=== PATIENT | male | born 1990 | race Caucasian/White ===

== ENCOUNTER 2019-09-06 17:28 | Emergency (ER) | payer OTHER, SELFPAY ==
[2019-09-06 17:39] VITALS: BP 144/97; PULSE 69; RESP 18; TEMP 37.3; O2SAT 100
--- NOTE | 2019-09-06 18:13 | ED.GENADULT ---
HPI - General Adult General Chief complaint: Ear Stated complaint: Ear Pressure/Pain/Dizziness Time Seen by Provider: 09/06/19 17:48 Source: patient and RN notes reviewed Mode of arrival: ambulatory Limitations: no limitations History of Present Illness HPI narrative: 29-year-old male presents with complains of RT ear pain, rhinorrhea, congestion, and decrease hearing for the past 2 days. Debrox without relief. No drainage, itching, or trauma to ear. No facial swelling. Rhinorrhea and nasal congestion. No high fevers, sore throat, drooling, neck or throat swelling. No chest pain or shortness of breath. Denies tinnitus, syncopal episodes, and balance disturbance. Denies dizziness, nausea, vomiting, and abdominal pain. Tolerating liquids well. Some parts of this dictation were generated by voice recognition software and may contain typographical and/or grammatical inaccuracies. Related Data Allergies Allergy/AdvReac Type Severity Reaction Status Date / Time No Known Allergies Allergy Verified 09/06/19 17:46 Review of Systems Review of Systems: Narrative: CONSTITUTIONAL: Denies fever, chills, sweats. EYES: Denies visual changes, redness, discharge. ENT: Complains of rhinorrhea, congestion, decrease hearing, RT otalgia. Denies drainage, sore throat. CARDIOVASCULAR: Denies chest pain, palpitations, edema. RESPIRATORY: Denies dyspnea, wheezing, cough. GASTROINTESTINAL: Denies abdominal pain, nausea, vomiting, diarrhea. GENITOURINARY: Denies dysuria, hematuria, abnormal discharge. SKIN: Denies rash or itching. MUSCULOSKELETAL: Denies acute back pain, joint pain, or myalgia. NEUROLOGIC: Denies numbness or focal weakness. Recent complaints of resolved nausea and dizziness. PSYCHIATRIC: Denies anxiety or depression. All systems reviewed & are unremarkable except as noted in HPI and below. [facility] Past Medical History Medical History (Updated 09/15/19 @ 03:18 by NORI Irvin) Eczema Tinnitus Surgical History Surgical History (Updated 09/06/19 @ 18:16 by NORI Irvin) No significant past surgical history Family History Family History (Updated 09/06/19 @ 18:16 by NORI Irvin) Mother Hypertension Social History Social History (Updated 09/06/19 @ 18:17 by NORI Irvin) Smoking packs per day: 0.25 Smoking cigarettes per day: 5.0 Years smoked: 15 Smoking pack-years: 3.75 Smoking status: Current every day smoker Second hand tobacco smoke exposure: No Alcohol intake: current Substance use: never Living arrangements: with family Occupation/Education: occupation Gender identity (if verbalized by the patient): Male Comments At time of signature, agree with nurse past medical, surgical, social, and family history. There is no relevant family history pertinent to the presenting complaint. Exam Narrative: Exam Narrative: GENERAL: This is a well-nourished, well-developed patient, in no apparent distress. Talks in full sentences and ambulates with steady gait without dyspnea. HEAD: normocephalic, atraumatic. EYES: PERRL. Sclera clear/white. Vision is grossly intact. EARS: External ears normal, auditory canals clear and without drainage, RT TM with mild-moderate redness, bulging, and effusion. No perforation or drainage. LT TM pearly harrell with good cone of light, no erythema or suppuration. No gross hearing deficit. NOSE: External nose normal with no obvious nasal discharge, nares with moderate redness and enlarged turbinates, clear rhinorrhea. THROAT: Mucous membranes moist, posterior pharynx with PND, mild erythema, no exudate, and normal tonsils. No drainage, no concern for Peritonsillar abscess. No drooling, trismus, or neck swelling. NECK: Neck supple, non-tender without lymphadenopathy, masses or thyromegaly. CARDIOVASCULAR: Regular rate and rhythm without murmurs, gallops, or rubs. RESPIRATORY: Clear to auscultation. Breath sounds equal kim
== END 2019-09-06 18:35 | disposition home or self-care (01) ==
PROVIDERS: Emergency Provider Nurse Practitioner Family
DX: H65.93 Unspecified nonsuppurative otitis media, bilateral (principal); F17.210 Nicotine dependence, cigarettes, uncomplicated
CPT/HCPCS: 99203; G0463

== ENCOUNTER → 2021-02-26 15:17 | Outpatient (CLI) | payer OTHER, SELFPAY ==
--- NOTE | ~2021-02-26 | CT_ITS ---
EXAMINATION: CT sinus wo con DATE: 02/26/2021 15:43 INDICATION: Disorder/dysfunction of eustachian tube TECHNIQUE: Computed tomography (CT) of the paranasal sinuses was performed without contrast. Iterativ e reconstruction technique was employed. Exam dose: 270.28 mGy-cm total exam DLP. COMPARISON: None FINDINGS: There is leftward deviation of the mid to lower nasal septum and rightward bowing of the up per nasal septum. The paranasal sinuses and mastoid air cells are normally developed and aerated. The ostiomeatal units are patent. Intralamellar cell of both middle nasal turbinate. IMPRESSION: Nasal septal deviation Patent ostiomeatal units, paranasal sinuses and mastoid air cells Reviewed, dictated and finalized at [facility]. Reviewed, dictated and finalized at [facility].
== END ==
PROVIDERS: PCP Family Medicine; Visit Provider Nurse Practitioner Family
DX: H69.81 Other specified disorders of Eustachian tube, right ear (principal); J34.2 Deviated nasal septum
CPT/HCPCS: 70486

== ENCOUNTER 2022-12-13 00:33 | Day surgery (SDC) | payer OTHER, SELFPAY ==
[2022-12-13 07:04] VITALS: BP 127/87; PULSE 72; RESP 16; TEMP 36.4; O2SAT 100
--- NOTE | 2022-12-13 07:18 | WPDANESEPPF ---
Anes - Initial Pre Proc Eval Procedure: Operation Date: 12/13/22 08:15 Proposed Procedures p Esophagogastroduodenoscopy - Solomon Snyder MD Date/Time: 12/13/22 07:18 Surgeon: Solomon Snyder MD Pre Op Diagnosis: abdominal distension, GERD Patient Data Age: 32 Gender: M Height: 1.8 m Weight: 100.2 kg Last Vital Signs Temp 36.4 C L 12/13/22 07:04 Pulse 72 12/13/22 07:04 Resp 16 12/13/22 07:04 BP 127/87 12/13/22 07:04 Pulse Ox 100 12/13/22 07:04 O2 Del Method Room Air 12/13/22 07:04 Allergies Allergy/AdvReac Type Severity Reaction Status Date / Time No Known Allergies Allergy Verified 12/13/22 07:06 Home Medications Medication Instructions Recorded Confirmed Type omeprazole 40 mg capsule,delayed 40 mg PO DAILY #60 caps 12/08/22 12/09/22 Rx release sucralfate 1 gram tablet (Carafate) 1 g PO TID #30 tabs 12/08/22 12/09/22 Rx Daily Probiotic 1 cap PO DAILY 12/09/22 12/09/22 History ascorbic acid (vitamin C) 250 mg 500 mg PO DAILY 12/09/22 12/09/22 History tablet cholecalciferol (vitamin D3) 25 75 mcg PO DAILY 12/09/22 12/09/22 History mcg (1,000 unit) capsule (Vitamin D3) magnesium oxide 400 mg PO DAILY 12/09/22 12/09/22 History Patient hx anesthesia problems: none Family hx anesthesia problems: none Results Review: All pre-operative results and documents have been reviewed as part of the pre-operative evaluation. [facility] Past Medical History Medical History (Updated 12/10/22 @ 14:50 by Vijay Valenzuela DO) Anxiety BMI 31.0-31.9,adult BMI 32.0-32.9,adult BMI 33.0-33.9,adult Depression Eczema GERD (gastroesophageal reflux disease) Hyperlipidemia Tinnitus Surgical History Surgical History No significant past surgical history Family History Family History Mother Hypertension Father No problems noted. Sibling Hypertension Social History Social History Smoking packs per day: 0.25 Smoking cigarettes per day: 5.0 Years smoked: 14 Smoking pack-years: 3.50 Smoking status: Current every day smoker Tobacco type: cigarettes Second hand tobacco smoke exposure: No Alcohol intake: current Substance use: current Substance use type: marijuana Other substance usage details: NOT FOR PAST COUPLE MONTHS Lack of Transportation: No Lack of Food: Never True Current Housing: I Have Housing Concerned About Future Housing: No Difficulty Paying Gas/Electric Bills: No Difficulty Paying for Meds: No Currently Unemployed: No Education: Associate Degree Difficulty w/ Childcare or Family Care: No Living arrangements: with family Occupation/Education: occupation 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 Informed Consent: The patient's anesthetic plan and its attendant risks and benefits were discussed with the patient/family/POA. Questions were solicited and answers provided to the satisfaction of the patient/family/POA.
[2022-12-13] MEDS: LACTATED RINGERS 1,000 ML 150 ML IV CONT (07:21)
--- NOTE | 2022-12-13 08:14 | PM.HPGS ---
History of Present Illness History of Present Illness Consent: Risks, benefits, and alternatives have been discussed and questions answered. Patient agrees to proceed with procedure. Chief complaint: abdominal distension, GERD Narrative: Benjamin Quezada is a 32 year old male Presents for EGD. Patient states for many years he has had heartburn. Typically treated with [id number] Tums and antacids. Over the last several weeks he developed epigastric bloating distention discomfort. His throat burning has now changed in also include substernal burning. For this reason he went saw his primary care doctor was started on omeprazole 40mg p.o. daily several weeks ago. He went to the emergency room on because of more intense pain. Obstructive series was normal. It. Carafate was added to his medications. Because of his rather significant discomfort an EGD was recommended and patient presents today for evaluation. Patient denies any dysphagia weight loss or bleeding. Family history is noncontributory. Review of Systems Review of Systems: Review of systems noncontributory. [facility] Past Medical History Medical History (Updated 12/10/22 @ 14:50 by Vijay Valenzuela, ) Anxiety BMI 31.0-31.9,adult BMI 32.0-32.9,adult BMI 33.0-33.9,adult Depression Eczema GERD (gastroesophageal reflux disease) Hyperlipidemia Tinnitus Surgical History Surgical History No significant past surgical history Family History Family History Mother Hypertension Father No problems noted. Sibling Hypertension Social History Social History Smoking packs per day: 0.25 Smoking cigarettes per day: 5.0 Years smoked: 14 Smoking pack-years: 3.50 Smoking status: Current every day smoker Tobacco type: cigarettes Second hand tobacco smoke exposure: No Alcohol intake: current Substance use: current Substance use type: marijuana Other substance usage details: NOT FOR PAST COUPLE MONTHS Lack of Transportation: No Lack of Food: Never True Current Housing: I Have Housing Concerned About Future Housing: No Difficulty Paying Gas/Electric Bills: No Difficulty Paying for Meds: No Currently Unemployed: No Education: Associate Degree Difficulty w/ Childcare or Family Care: No Living arrangements: with family Occupation/Education: occupation 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[employer] Gender identity (if verbalized by the patient): Male Spiritual care concerns: No Meds Home Medications and Allergies Home Medications Medication Instructions Recorded Confirmed Type omeprazole 40 mg capsule,delayed 40 mg PO DAILY #60 caps 12/08/22 12/09/22 Rx release sucralfate 1 gram tablet (Carafate) 1 g PO TID #30 tabs 12/08/22 12/09/22 Rx Daily Probiotic 1 cap PO DAILY 12/09/22 12/09/22 History ascorbic acid (vitamin C) 250 mg 500 mg PO DAILY 12/09/22 12/09/22 History tablet cholecalciferol (vitamin D3) 25 75 mcg PO DAILY 12/09/22 12/09/22 History mcg (1,000 unit) capsule (Vitamin D3) magnesium oxide 400 mg PO DAILY 12/09/22 12/09/22 History Allergies Allergy/AdvReac Type Severity Reaction Status Date / Time No Known Allergies Allergy Verified 12/13/22 07:06 Vital Signs Vital Signs - 24 hr 12/13/22 07:04 Temperature 97.5 F L Pulse Rate 72 Respiratory Rate 16 Blood Pressure 127/87 Pulse Oximetry 100 Oxygen Delivery Room Air Exam Narrative: Physical exam reveals patient to be alert. Vital signs stable. HEENT exam is unremarkable. Patient is anicteric. Lungs are clear to auscultation and percussion. Heart is without murmur or extra sounds. Abdomen bowel sounds are present soft nontender with no hepatosplenomegaly. Assessment and Plan Assessment a
[2022-12-13] MEDS: BENZOCAINE (*SP) 60 ML SPRAY CAN (HURRICAINE) 1 SPRAY MUCOUS MEM (08:27)
[2022-12-13 08:38] VITALS: BP 147/81; PULSE 67; RESP 14; O2SAT 99
[2022-12-13 08:48] VITALS: BP 140/79; PULSE 60; RESP 18; O2SAT 99
[2022-12-13 08:58] VITALS: BP 110/73; PULSE 65; RESP 20; O2SAT 99
== END 2022-12-13 09:11 | disposition home or self-care (01) ==
PROVIDERS: PCP Nurse Practitioner Family; Visit Provider Internal Medicine Gastroenterology
PROC: 0DJ08ZZ Inspection of Upper Intestinal Tract, Via Natural or Artificial Opening Endoscopic (ICD-10-PCS; CPT 43235; principal; 2022-12-13 08:15)
DX: K21.9 Gastro-esophageal reflux disease without esophagitis (principal); R14.0 Abdominal distension (gaseous); R10.13 Epigastric pain; F17.210 Nicotine dependence, cigarettes, uncomplicated; F12.90 Cannabis use, unspecified, uncomplicated; E66.9 Obesity, unspecified; Z68.30 Body mass index [BMI] 30.0-30.9, adult
CPT/HCPCS: 43239; 87081; J2704; J7120

== ENCOUNTER 2023-02-17 06:52 | Outpatient (CLI) | payer OTHER, SELFPAY ==
--- NOTE | ~2023-02-17 | MR_ITS ---
EXAMINATION: MR brain/brain stem wo con DATE: 02/17/2023 07:33 INDICATION: Dizziness and giddiness. TECHNIQUE: Magnetic resonance imaging (MRI) of the brain and brainstem was performed without intraven ous contrast. COMPARISON: None. FINDINGS: There is an empty sella. There is no intracranial hemorrhage, acute infarction, or abnormal intracranial mass lesion. The ventricles are normal in size. The paranasal sinuses are clear. The or bits are normal. The mastoid air cells are normal. IMPRESSION: 1. Empty sella syndrome. Reviewed, dictated and finalized at location [facility]. IMPRESSION: 1. Empty sella syndrome.
== END 2023-02-17 06:53 | disposition home or self-care (01) ==
PROVIDERS: PCP Family Medicine; Visit Provider Nurse Practitioner Family
DX: R42 Dizziness and giddiness (principal); R51.9 Headache, unspecified; R20.2 Paresthesia of skin
CPT/HCPCS: 70551

== ENCOUNTER 2023-04-28 12:26 | Outpatient (CLI) | payer OTHER, SELFPAY ==
--- NOTE | ~2023-04-28 | US_ITS ---
EXAMINATION: US thyroid DATE: 04/28/2023 12:53 INDICATION: Other specified disorders of thyroid. TECHNIQUE: Multiple ultrasound images of the thyroid were obtained. COMPARISON: None. FINDINGS: The right thyroid lobe measures 5.9 x 2.3 x 2.0 cm. The left thyroid lobe measures 5.9 x 2.4 x 1.9 c m. The thyroid is diffusely hypoechoic and heterogeneous. No discrete nodule. Vascularity is normal. IMPRESSION: 1. Heterogeneous thyroid, likely chronic lymphocytic (Pito) thyroiditis. Reviewed, dictated and finalized at location E.
== END 2023-04-28 12:27 | disposition home or self-care (01) ==
PROVIDERS: PCP Family Medicine; Visit Provider Internal Medicine
DX: E04.1 Nontoxic single thyroid nodule (principal); E07.89 Other specified disorders of thyroid
CPT/HCPCS: 76536

== ENCOUNTER 2023-05-17 16:40 | Outpatient (CLI) | payer OTHER, SELFPAY ==
--- NOTE | ~2023-05-17 | MR_ITS ---
MR Venogram of the Brain Clinical Indication: Headache, empty sella syndrome Technique MR venogram was done using coronal 2D time of flight technique. Findings: The superior sagittal sinus appears normal. The left and right transverse sinuses appears normal. The sigmoid sinuses appear patent bilaterally. Probable focal flow artifact at the junction o f the right transverse and sigmoid sinuses. The internal cerebral veins, vein of Zen and straight s inus are patent. Impression: No evidence of venous sinus thrombosis. Reviewed, dictated and finalized at location . [employer] Impression: No evidence of venous sinus thrombosis.
== END 2023-05-17 16:41 | disposition home or self-care (01) ==
PROVIDERS: PCP Family Medicine; Visit Provider Student in an Organized Health Care Education/Training Program
DX: E23.6 Other disorders of pituitary gland (principal)
CPT/HCPCS: 70544

== ENCOUNTER 2023-05-31 05:24 | Outpatient (CLI) | payer OTHER, SELFPAY ==
[2023-05-19 13:08] VITALS: BMI 31.4
--- NOTE | 2023-05-19 13:08 | PC.NURSE ---
Pre Radiology instructions Report to the outpatient [facility] on date 05/31/23 at time 0730 for procedure Time: 0930. YOU MAY BE MONITORED AT HOSPITAL FOR UP TO 4 HOURS AFTER YOUR PROCEDURE. A visitor will be allowed to accompany the patient into the hospital. You and your visitor will be asked to self-screen and do not enter if you have any COVID symptoms. A mask is OPTIONAL within the hospital. Patients are to have no food or drink 6 hours prior to procedure time Driving will be restricted after the procedure, you must have a person to drive you home. Labs will be drawn in preop area and once reviewed, you will be taken to radiology area for procedure. When the procedure is completed, you will be taken to outpatient where you will be monitored for several hours. You may have one visitor in this area. Other than holding anti-coagulants, patient may take other medication(s) as scheduled. Prior to your appointment date patients are instructed to hold anti-coagulants after discussing with ordering provider to stop. If unable to discontinue anti-coagulants please notify radiologist. ? No aspirin or warfarin (Coumadin) for 7 days prior to the procedure. ? No clopidogrel (Plavix), ticagrelor (Brilinta), prasugrel (Effient) or dabigatran (Pradaxa) for 5 days prior to the procedure. ? No rivaroxaban (Xarelto), apixaban (Eliquis), dipyridamole (Aggrenox or Persantine) or cilostazol (Pletal) for 2 days prior to the procedure. Medications to discontinue per physician: N/A Date to take last dose: N/A Please leave all valuables, including medications, at home the day of procedure. The hospital will not accept responsibility for valuables. Wear comfortable, loose fitting clothing.? Follow any additional instructions given to you from ordering provider. Telephone instructions given to PT - MAX GLO and asked if any additional questions and then verbalized understanding. Patient advised to call scheduling provider office or registration scheduling [phone] if any additional questions.
--- NOTE | ~2023-05-31 | XR_ITS ---
EXAMINATION: XR lumbar puncture diagnostic DATE: 05/31/2023 09:42 INDICATION: Empty sella syndrome. Headache. TECHNIQUE: The procedure including the risks, benefits, and alternatives was discussed with the patie nt. Risks discussed included spinal headache, cerebrospinal fluid leak, bleeding, and infection. The patient understood the risks and agreed to proceed. A timeout was performed to verify the patient' s name, date of , and procedure to be performed. The skin overlying the L2-L3 level was prepped and draped in usual sterile fashion. Subcutaneous 1% lidocaine was used for local anesthesia. A 20 gauge spinal needle was advanced under fluoroscopic guidance. The needle was removed and the entry s ite was cleaned and dressed. There were no immediate complications. Fluoroscopy exposure time was 0. 1 minutes. The total number of images was 1. FINDINGS: Real-time fluoroscopy demonstrates the needle at the L2-L3 level. The opening pressure was 20 cm water (Normal range is variably defined as 6-20 cm water and up to 25 cm water in obese patient s. Pressure >25 cm water is one of the modified Dandy criteria for idiopathic intracranial hypertensi on). 14 mL of clear, colorless fluid was collected in 4 tubes. IMPRESSION: 1. Successful fluoro-guided lumbar puncture. Reviewed, dictated and finalized at location A. LICENSED PRACTICAL
[2023-05-31 07:50] VITALS: BP 121/78; PULSE 72; RESP 20; TEMP 36; O2SAT 100
[2023-05-31 08:15] LABS: Mean Platelet Volume 10.2 fl (7.4-10.4); Platelet Count Result 313 k/mm3 (150-375)
--- NOTE | 2023-05-31 08:16 | SUR.PREOP ---
0814Comfort, radiology, aware labs were sent.
[2023-05-31 08:34] LABS: Prothrombin Time 13.5 Seconds (11.1-14.7)
[2023-05-31 09:30] VITALS: BP 104/76; PULSE 60; RESP 16; O2SAT 100
[2023-05-31 09:45] VITALS: BP 116/75; PULSE 61; RESP 16
[2023-05-31 10:00] VITALS: BP 106/75; PULSE 62; RESP 16; O2SAT 100
[2023-05-31 10:00] LABS: Glucose CSF 58 mg/dL (40-70); Total Protein CSF 41 mg/dL (12-60)
[2023-05-31 10:30] VITALS: BP 108/70; PULSE 62; RESP 16; O2SAT 100
[2023-05-31 11:00] VITALS: BP 111/78; PULSE 65; RESP 16; O2SAT 99
[2023-05-31 11:25] LABS: Appearance CSF Clear (Clear); CSF source CSF; Color CSF Colorless (Colorless); Nucleated Cell CSF 1 /uL (0-5); Red Blood Cell CSF 12 (0-2)
[2023-05-31 11:31] LABS: Lymphocytes CSF 80 % (40-80); Macrophages CSF 16; Neutrophils CSF 4 % (0-6)
== END 2023-05-31 11:28 | disposition home or self-care (01) ==
PROVIDERS: PCP Family Medicine; Referring Provider Student in an Organized Health Care Education/Training Program; Visit Provider Radiology Diagnostic Radiology
PROC: 009U3ZZ Drainage of Spinal Canal, Percutaneous Approach (ICD-10-PCS; CPT 62328; principal; 2023-05-31 09:30)
DX: E23.6 Other disorders of pituitary gland (principal)
CPT/HCPCS: 36415; 62328; 82945; 84157; 85049; 85610; 87070; 89051

== ENCOUNTER 2023-10-10 15:03 | Outpatient (CLI) | payer OTHER, SELFPAY ==
--- NOTE | ~2023-10-10 | CT_ITS ---
EXAMINATION: CT cervical spine wo con DATE: 10/10/2023 15:25 INDICATION: Neck stiffness. Neck pain. TECHNIQUE: Computed tomography (CT) of the cervical spine was performed without intravenous contrast. Automated exposure control and iterative reconstruction technique were employed. The dose-length pro duct was 582.10 mGy-cm. COMPARISON: None FINDINGS: There is kyphosis of cervical spine. C1 ring is ununited posteriorly. Vertebral body height s are normal. Intervertebral disc heights are normal. The following disc levels are specifically disc ussed: C2-C3: There is no uncovertebral joint osteoarthritis. There is mild bilateral facet joint osteoarthr itis. There is no neural foraminal stenosis. There is no central canal stenosis. C3-C4: There is mild left uncovertebral joint osteoarthritis. There is mild right facet joint osteoar thritis. There is no neural foraminal stenosis. There is no central canal stenosis. C4-C5: There is mild bilateral uncovertebral joint osteoarthritis. There is no facet joint osteoarthr itis. There is no neural foraminal stenosis. There is no central canal stenosis. C5-C6: There is no uncovertebral joint osteoarthritis. There is no facet joint osteoarthritis. There is no neural foraminal stenosis. There is no central canal stenosis. C6-C7: There is no uncovertebral joint osteoarthritis. There is no facet joint osteoarthritis. There is no neural foraminal stenosis. There is no central canal stenosis. C7-T1: There is no uncovertebral joint osteoarthritis. There is moderate bilateral facet joint osteoa rthritis. There is no neural foraminal stenosis. There is no central canal stenosis. IMPRESSION: 1. Mild cervical spondylosis. Reviewed, dictated and finalized at location A.
== END 2023-10-10 15:04 | disposition home or self-care (01) ==
LOC: ANHIMG 15:03
PROVIDERS: PCP Family Medicine; Visit Provider Student in an Organized Health Care Education/Training Program
DX: M43.6 Torticollis (principal); M43.02 Spondylolysis, cervical region
CPT/HCPCS: 72125